=== PATIENT | male | born 1955 | race Caucasian/White ===

== ENCOUNTER 2022-02-11 14:07 | Outpatient (REF) | payer OTHER, SELFPAY ==
[2022-02-11 16:11] LABS: Hematocrit 43.5 % (42.0-52.0); Hemoglobin 14.9 g/dl (14.0-18.0); Mean Corpuscular HGB Conc 34.3 g/dl (31.0-36.0); Mean Corpuscular Hemoglobin 31.2 pg (27.0-33.0); Mean Platelet Volume 9.6 fL (9.4-12.4); Platelet Count 234 X10*3/uL (160-400); Red Blood Count 4.78 X10*6/uL (4.60-5.80); Red Cell Distribution Width 12.5 % (11.0-16.0); White Blood Count 12.6 X10*3/uL (4.8-10.8)
[2022-02-11 16:36] LABS: Anion Gap 13 (12-20); Blood Urea Nitrogen 15 mg/dL (9-16); Calcium 9.8 mg/dL (8.4-10.2); Carbon Dioxide 26 mmol/L (22-29); Chloride 103 mmol/L (96-108); Estimated Glomerular Filt Rate > 60; Glucose Random 104 mg/dL (60-115); Potassium 4.4 mmol/L (3.3-5.1); Sodium 138 mmol/L (135-145)
== END 2022-02-11 14:08 | disposition home or self-care (01) ==
LOC: HO.LAB 14:07
PROVIDERS: PCP Internal Medicine; Referring Provider Internal Medicine; Visit Provider Internal Medicine
DX: I25.118 Atherosclerotic heart disease of native coronary artery with other forms of angina pectoris (principal); I10 Essential (primary) hypertension; E78.5 Hyperlipidemia, unspecified; Z79.899 Other long term (current) drug therapy
CPT/HCPCS: 36415; 80048; 85027; 85610; 93005; 99202

== ENCOUNTER → 2022-02-19 13:57 | Outpatient (REF) | payer OTHER, SELFPAY ==
--- NOTE | 2022-02-19 14:02 | CA_ITS ---
Transthoracic Echocardiogram Patient (Last, First, Middle): Van Horan, Gender: Male Date of : 1955 Age: 66 Procedure Date: 02/19/2022 Procedure Type: Transthoracic Echocardiogram Location: OP Height: 170.18 cm Weight: 72.58 kg BSA: 1.84 m2 Heart Rate: bpm BP: 125 / 70 mmHg Amalgamator: TO Referring MD: Chung Butt MD Symptoms: I25.10 - Atherosclerotic heart disease of [place] coronary artery without... Study Quality: Fair Conclusions: - Normal left ventricular size and systolic function. The visually estimated ejection fraction is between 60-65%. - Normal right ventricular cavity size and systolic function. Findings Left Ventricle Normal left ventricular size and systolic function. The visually estimated ejection fraction is between 60-65%. There is no evidence of regional wall motion abnormalities. Diastolic function is normal for age. There is mild septal asymmetric hypertrophy. GLS normal at -18%. Right Ventricle Normal right ventricular cavity size and systolic function. Atria Both atria are normal in size. Aortic Valve Normal aortic valve structure and function. There is no aortic valve stenosis. There is no aortic valve regurgitation. Mitral Valve The mitral valve appears normal. There is no mitral valve regurgitation. There is no mitral valve stenosis. Pulmonic Valve The pulmonic valve is likely normal. Tricuspid Valve Normal tricuspid valve structure. There is trace tricuspid valve regurgitation. Normal right atrial pressure. There is no evidence of pulmonary hypertension. Great Vessels All visible segments of the aorta are normal in size. Venous The inferior vena cava is normal in size and collapses greater than 50% with inspiration. Pericardium/Pleural There is no evidence of pericardial effusion. Prior Study Comparison No prior study available for comparison. Measurements 2D Linear Measurements IVSd: 1.17 0.6-0.9/0.6-1.0 cm LVIDd: 4.44 3.9-5.3/4.2-5.9 cm LVIDd Index: 2.41 2.4-3.2/2.2-3.1 cm/m2 LVIDs: 2.48 2.0-3.6 cm LVPWd: 0.84 0.7-1.1 cm LA Diam: 3.40 2.7-3.8/3.0-4.0 cm LAIDs Index: 1.85 1.5-2.3 cm/m2 LV Mass: 188.04 67-162/88-224 g LV Mass Index: 102.20 43-95/49-115 g/m2 LVOT Diam: 2.00 3.0+(-)1.3 cm 2D Systolic Function EF 4C: 64.70 >55% EF 2C: 68.00 >55% EF BiP: 66.70 >55% Mitral Valve MV Pk E: 0.69 MV PK A: 0.72 MV Decel Time: 276.00 E/A: 1.00 E'Lateral: 11.10 E'Medial: 7.07 E/E' Med: 9.80 E/E' Lat: 6.20 PHT: 81.00 MVA PHT: 2.72 Decel [place]: 2.50 Aortic Valve AoV Pk Clark: 1.75 AoV Mn Clark: 1.13 AoV VTI: 0.35 AoV Pk Grad: 12.00 Aov Mn Grad: 6.00 DARRYL Cont.VTI: 2.76 LVOT LVOT Pk Clark: 1.46 LVOT Mn Clark: 0.89 LVOT VTI: 0.31 LVOT Pk Grad: 9.00 LVOT Mn Grad: 4.00 LVOT Diam: 2.00 LVOT Area: 3.14 Diastolic Function MV Pk E: 0.69 MV Pk A: 0.72 E/A: 1.00 E'Medial: 7.07 E/E' Med: 9.80 E' Laterial: 11.10 E/E' Lat: 6.20 Right Ventricle TAPSE (mm): 21.90 TVS' Clark: 13.30 Tricuspid Valve TR Pk Clark: 2.42 TR Pk Grad: 23.00 RA Press: 3.00 RVSP: 26.00 Great Vessels Aorta Sinus of Valsalva: 3.68 2.0-3.5 cm Ao Asc: 2.90 2.1-3.4 cm Updated in Other Vendor System with Status of Final Av Hassan MD electronically signed on 02/22/2022 11:43:35 AM with status of Final
== END ==
LOC: HO.CARD 13:57
PROVIDERS: PCP Internal Medicine; Visit Provider Internal Medicine
DX: I25.119 Atherosclerotic heart disease of native coronary artery with unspecified angina pectoris (principal)
CPT/HCPCS: 93306; 93356

== ENCOUNTER → 2022-02-23 13:31 | Outpatient (BNVA) | payer OTHER, SELFPAY | PROVIDERS: PCP Internal Medicine; Visit Provider Internal Medicine | DX: I25.118 Atherosclerotic heart disease of native coronary artery with other forms of angina pectoris (principal); I10 Essential (primary) hypertension; E78.5 Hyperlipidemia, unspecified; Z79.899 Other long term (current) drug therapy; Z95.5 Presence of coronary angioplasty implant and graft | CPT/HCPCS: 99212 ==

== ENCOUNTER → 2022-05-31 08:59 | Outpatient (BNVA) | payer OTHER, SELFPAY | PROVIDERS: PCP Internal Medicine; Referring Provider Internal Medicine; Visit Provider Internal Medicine | DX: I25.118 Atherosclerotic heart disease of native coronary artery with other forms of angina pectoris (principal); I10 Essential (primary) hypertension; E78.5 Hyperlipidemia, unspecified; M79.631 Pain in right forearm | CPT/HCPCS: 99212 ==

== ENCOUNTER 2023-02-03 12:50 | Outpatient (AMB) | payer OTHER, SELFPAY ==
[2022-09-24 14:17] VITALS: BP 116/52; BP 80/40; BMI 24.6
--- NOTE | 2023-02-03 13:28 | MHC.OFFVIS ---
Intake Intake Visit Reasons: Rising PSA Intake Note: New Patient presents for initial visit for Urology Medications: Blood Thinner: Medical Reviewer Required: No Accompanied by: Self / Same As Patient Allergies No Known Allergies Allergy (Verified 02/03/23 20:10) Medication List - Last Reconciled 02/03/23 by JERRY Wagner aspirin (Adult Low Dose Aspirin) 81 mg PO DAILY budesonide ER 3 mg PO DAILY losartan 50 mg PO DAILY metoprolol succinate ER 50 mg PO DAILY rosuvastatin 40 mg PO DAILY ticagrelor (Brilinta) 90 mg PO BID trazodone 50 mg PO BEDTIME HPI HPI Comments History of Present Illness Details Van is a very pleasant 67-year-old male patient of Dr. Joe. He has a past medical history of atherosclerotic cardiovascular disease, hyperlipidemia, and hypertension. He presents to the office today as a new patient for an elevated PSA. In discussion with the patient today reports to be doing and feeling well. He reports having had annual blood work with PCP at which time PSA was noted to be elevated. Discussed at length potential causes of elevated PSA. Patient otherwise denies any bothersome urinary issues or concerns. He denies urinary urgency, urinary frequency, incontinence, nocturia, hematuria, dysuria, foul smelling urine, changes to urinary stream, flank pain, fever, and or chills. He is happy with his current voiding parameters. He denies any known family history of prostate cancer. In office urinalysis results reviewed with the patient today. LUCINA offered however deferred. Discussed obtaining redraw of PSA with no sex the night before, no caffeine morning of, and no heavy lifting 1-2 days prior to lab draw. Discussed obtaining retroperitoneal ultrasound for further assessment evaluation. He otherwise offers no issues or concerns at this time. PSA 12/20--5.9 PFSH Medical History Atherosclerotic cardiovascular disease Other and unspecified hyperlipidemia Essential hypertension Surgical History History of cardiac cath Family History Other Adopted Social History Alcohol intake: former Year quit: 1989 Patient Tobacco Use Status: Former Tobacco user Quit Date: 1989 Tobacco use type: Cigarette Cigarette Packs Per Day: 1 Years Smoked: 10+ Review of Systems Const Reports no additional complaints Eyes Reports no additional complaints ENT Reports no additional complaints Card Reports as per HPI Resp Reports no additional complaints GI Reports no additional complaints Reports as per HPI Musc Reports no additional complaints Neuro Reports no additional complaints Psych Reports no additional complaints Endo Reports no additional complaints Jaron/Lymph Reports no additional complaints Aller/Immun Reports no additional complaints Physical Exam Const General: cooperative, healthy appearing, comfortable, no acute distress, well developed, alert and awake Orientation/consciousness: patient oriented x3 Limitations: no limitations HEENT Head: Yes normal to inspection, Yes normocephalic and Yes atraumatic Ears: hearing grossly normal bilaterally Eyes General: appearance normal, both eyes and all related structures Neck Neck: Yes normal visual inspection and Yes trachea midline Chest Chest palpation & inspection: normal inspection of the chest Resp Effort & Inspection: normal respiratory effort and able to speak in complete sentences Cardio Rate: regular rate GI Inspection: Yes normal to inspection General: Yes no CVA tenderness Back/Spine/Pelvis Back: no CVA tenderness Skin General skin exam: no rashes or lesions noted Neuro General: patient oriented x3 Extrem General: Yes normal to inspection Psych Appearance: grossly normal and well kempt Mental Status: mental status grossly normal Speech and movement: Clear speech present and Pressured speech present Affect: normal affect Attitude: cooperative Thought content: Normal thought content present Insight: Fair insight present (Psych) Judgement: Fair judgement present (Psych) Results AMB Urinalysis, Automated UA Leukoctes 0 Aleida/uL Last Edit by Predikt on 02/03/23 13:54 UA Nitrite Negative Last Edit by Predikt on 02/03/23 13:54 UA Urobilinogen 0.2 mg/dL Last Edit by Predikt on 02/03/23 13:54 UA Protein 15 mg/dL Last Edit by Predikt on 02/03/23 13:54 UA pH 6.0 Last Edit by Predikt on 02/03/23 13:54 UA Blood 0 Natanael/uL Last Edit by Predikt on 02/03/23 13:54 UA Specific [place] 1.105 Last Edit by Predikt on 02/03/23 13:54 UA Ketone Negative Last Edit by Ericka Kidd on 02/03/23 13:54 UA Bilirubin 0 mg/dL Last Edit by Ericka Kidd on 02/03/23 13:54 UA Glucose 0 mg/dL Last Edit by Ericka Kidd on 02/03/23 13:54 Results Reviewed Results Reviewed: Laboratory Last Values Urine pH (Auto) 6.0 02/03/23 13:33 Specific [place] (Auto) 1.105 02/03/23 13:33 Urine Protein (Auto) 15 mg/dL 02/03/23 13:33 Glucose (UA)(Auto) 0 mg/dL 02/03/23 13:33 Urine Ketones (Auto) Negative 02/03/23 13:33 Urine Blood (Auto) 0 Natanael/uL 02/03/23 13:33 Urine Nitrite (Auto) Negative 02/03/23 13:33 Urine Bilirubin (Auto) 0 mg/dL 02/03/23 13:33 Urine Urobilinogen (Auto) 0.2 mg/dL 02/03/23 13:33 Leukocyte Esterase (Auto) 0 Aleida/uL 02/03/23 13:33 Assessment & Plan Assessment & Plan (1) Elevated PSA: Code(s): R97.20 - Elevated prostate specific antigen [PSA] Plan In office urinalysis results reviewed with the patient today. Discussed at length potential causes of elevated PSA. LUCINA offered however deferred Patient denies any bothersome urinary issues at this time. He reports be happy with current voiding parameters. Discussed PSA results. Will redraw PSA; with no sex night before, no caffeine morning of, and no heavy lifting 1-2 days prior to lab draw. Will obtain retroperitoneal ultrasound for further assessment evaluation. Follow-up in 4-6 weeks with imaging and lab to be completed prior; or sooner with any issues, concerns, and or questions. Orders: Orders PSA,Total (Free>4and<10) Today R97.20 - Elevated prostate specific antigen [PSA] US retroperitoneal comp Today R39.9 - Unspecified symptoms and signs involving the genitourinary system AMB Urinalysis Automated Today Z13.9 - Encounter for screening, unspecified Patient Instructions: The patient had an opportunity to ask questions regarding the treatment plan. All questions were answered. Physical exam, labs, and imaging were discussed and reviewed in detail. As well as risks, benefits, and discussion of treatment choices. No major barriers to understanding were identified. The patient expressed understanding and agreement with the above treatment plan. The patient was made aware they should contact our office by phone for worsening of their current condition, the appearance of new symptoms, or with any questions or concerns. Compliance is encouraged with any medications and follow up testing that is ordered. It is a privilege to be allowed the opportunity to participate in? your urological care.? Again, if you have any questions or concerns If you have any questions or concerns please do not hesitate to contact me. The office is [phone]. This note is constructed using voice recognition software. While every effort has been made to ensure accuracy operator weapon locating radar errors may have been included. Yours sincerely, JERRY Wagner Coding Level of Care Code New Pt Level 3 (79059) Diagnoses Elevated PSA R97.20
== END 2023-02-03 14:16 | disposition home or self-care (01) ==
PROVIDERS: PCP Internal Medicine; Visit Provider Nurse Practitioner Family
DX: R97.20 Elevated prostate specific antigen [PSA] (principal); Z13.9 Encounter for screening, unspecified
CPT/HCPCS: 99203; 99213

== ENCOUNTER → 2023-02-03 12:50 | Outpatient (BNVA) | payer OTHER, SELFPAY ==
[2022-09-24 14:17] VITALS: BP 116/52; BP 80/40; BMI 24.6
== END ==
PROVIDERS: PCP Internal Medicine; Visit Provider Nurse Practitioner Family
DX: R97.20 Elevated prostate specific antigen [PSA] (principal)
CPT/HCPCS: 81003; 99202

== ENCOUNTER 2023-03-10 08:46 | Outpatient (AMB) | payer MEDICARE, SELFPAY ==
[2022-09-24 14:17] VITALS: BP 116/52; BP 80/40; BMI 24.6
--- NOTE | 2023-03-10 08:50 | A.OFFVIS_ITS ---
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 In 01/2022, he was seen regarding chest pain. Exertional symptoms for about 3-4 months. Also had an abnormal EKG with anterior T inversions. Subsequently, underwent urgent cardiac catheterization and LAD stenting. He is overall doing very well. No angina or in fact any cardiac symptoms at all. He states he has no issues whatsoever. [facility] Medical History Atherosclerotic cardiovascular disease Other and unspecified hyperlipidemia Essential hypertension Surgical History History of cardiac cath Family History Other Adopted Social History Alcohol intake: former Year quit: 1989 Patient Tobacco Use Status: Former Tobacco user Quit Date: 1989 Tobacco use type: Cigarette Cigarette Packs Per Day: 1 Years Smoked: 10+ Review of Systems Const Denies weakness ENT Denies dizziness Card Denies chest pain, Denies chest pain with activity, Denies syncope, Denies rapid heart rate, Denies pedal edema, Denies edema, Denies leg edema, Denies lightheadedness, Denies palpitations, Denies dyspnea, Denies dyspnea on exertion and Denies orthopnea Resp Denies cough, Denies dyspnea and Denies dyspnea on exertion GI Denies hematochezia and Denies change in stool character Musc Denies abnormal gait, Denies muscle cramps, Denies muscle weakness, Denies numbness, Denies radiating pain into limb and Denies tingling Neuro Denies abnormal gait, Denies dizziness, Denies syncope, Denies numbness, Denies tingling and Denies weakness Endo Denies palpitations Physical Exam Vital Signs: Last Vital Signs Pulse 54 03/10/23 08:51 BP 118/58 L 03/10/23 08:51 BMI result Body Mass Index 24.4 Const General: comfortable and no acute distress Orientation/consciousness: patient oriented x3 HEENT Other: Unremarkable Head: Yes normal to inspection Neck Neck: Yes normal visual inspection Chest Chest palpation & inspection: normal inspection of the chest Resp Auscultation: clear to auscultation bilaterally Cardio Palpation: normal PMI Heart sounds: S1 normal heart sound present, S2 normal heart sound present, no gallops, Murmur heart sound present systolic I/ and no rubs GI Palpation (GI): Soft to palpation Back/Spine/Pelvis Other: unremarkable Skin General skin exam: no rashes or lesions noted Neuro General: patient oriented x3 Extrem General: Yes normal to inspection Psych Mental Status: mental status grossly normal Office Procedures EKG Details: EKG with sinus bradycardia 54/Min; no significant ST-T changes and otherwise unremarkable. [place] [id number], Complete Assessment & Plan Assessment & Plan (1) Atherosclerotic cardiovascular disease: Code(s): I25.10 - Atherosclerotic heart disease of [place] coronary artery without angina pectoris (2) Stable angina: Code(s): I20.8 - Other forms of angina pectoris (3) Essential hypertension: Code(s): I10 - Essential (primary) hypertension (4) Other and unspecified hyperlipidemia: Code(s): E78.5 - Hyperlipidemia, unspecified Plan Cardiac catheterization data reviewed. Mid LAD had 95% stenosis. Status post drug-eluting stenting. Mid circumflex and RCA had 50% stenosis, for medical management. Echocardiogram with LVEF of 60-60%. No wall motion abnormalities and otherwise unremarkable. With regard to medications, aspirin indefinitely. Off Brilinta. Continue beta- blockers and statins. It seems that he has been on simvastatin in the past but then on atorvastatin but current list reflects rosuvastatin. Check lipids and LFTs. Otherwise stable. Follow-up in 1 year. He will call us with concerns. Total time spent including review of data, counseling, documentation, coordination of care-32 minutes. Coding Level of Care Code Est Pt Level 4 (34831) Diagnoses Atherosclerotic cardiovascular disease I25.10 Stable angina I20.8 Essential hypertension I10 Other and unspecified hyperlipidemia E78.5 CPT Codes EKG - CPT: 43602-[id number], Complete ([id number])
[2023-03-10 08:51] VITALS: BP 118/58; PULSE 54; BMI 24.4
== END 2023-03-10 09:06 | disposition home or self-care (01) ==
PROVIDERS: PCP Internal Medicine; Visit Provider Internal Medicine
DX: I25.10 Atherosclerotic heart disease of native coronary artery without angina pectoris (principal); I10 Essential (primary) hypertension; E78.5 Hyperlipidemia, unspecified
CPT/HCPCS: 93010; 99214

== ENCOUNTER → 2023-03-10 08:46 | Outpatient (BNVA) | payer SELFPAY ==
[2022-09-24 14:17] VITALS: BP 116/52; BP 80/40; BMI 24.6
== END ==
PROVIDERS: Visit Provider Internal Medicine
DX: I25.118 Atherosclerotic heart disease of native coronary artery with other forms of angina pectoris (principal); I10 Essential (primary) hypertension; E78.5 Hyperlipidemia, unspecified; Z79.82 Long term (current) use of aspirin; Z79.899 Other long term (current) drug therapy
CPT/HCPCS: 93005; 99212

== ENCOUNTER 2024-03-12 14:01 | Outpatient (REF) | payer MEDICARE, SELFPAY ==
[2022-09-24 14:17] VITALS: BP 116/52; BP 80/40; BMI 24.6
[2024-03-12 18:53] LABS: Alanine Aminotransferase 22 U/L (0-40); Albumin Level 4.6 g/dL (3.5-5.0); Alkaline Phosphatase 54 U/L (39-117); Aspartate Amino Transferase 27 U/L (5-37); Bilirubin Direct 0.3 mg/dL (0.0-0.5); Bilirubin Total 0.9 mg/dL (0.0-1.0); Cholesterol 113 mg/dL (<200); HDL Cholesterol 47 mg/dL (>40); LDL Cholesterol Calculated 51 mg/dL (<100); Total Protein 7.4 g/dL (6.5-8.0); Triglycerides 75 mg/dL (<150)
== END 2024-03-12 14:02 | disposition home or self-care (01) ==
LOC: HO.LAB 14:01
PROVIDERS: PCP Internal Medicine; Visit Provider Internal Medicine
DX: I25.10 Atherosclerotic heart disease of native coronary artery without angina pectoris (principal); E78.5 Hyperlipidemia, unspecified; I10 Essential (primary) hypertension
CPT/HCPCS: 36415; 80061; 80076; 93005; 99212

== ENCOUNTER 2024-03-12 14:01 | Outpatient (AMB) | payer MEDICARE, SELFPAY ==
[2022-09-24 14:17] VITALS: BP 116/52; BP 80/40; BMI 24.6
[2024-03-12 14:18] VITALS: BP 124/68; PULSE 61; BMI 23.5
--- NOTE | 2024-03-12 14:18 | MHC.OFFVIS ---
Vital Signs 03/12/24 14:18 Height 5 ft 7 in Weight 149 lb 14.629 oz BMI 23.5 BP 124/68 Blood Pressure Location Lt brachial Position Sitting Pulse 61 Pulse Source Monitor Intake Visit Reasons: 1 year follow-up Allergies No Known Allergies Allergy (Verified 03/10/23 08:53) Medication List - Last Reconciled 03/12/24 by Chung Butt MD aspirin (Adult Low Dose Aspirin) 81 mg PO DAILY losartan 50 mg PO DAILY metoprolol succinate ER 50 mg PO DAILY rosuvastatin 40 mg PO DAILY trazodone 50 mg PO BEDTIME HPI Comments Details: Van returns for follow-up. In 01/2022, he was seen regarding chest pain. Exertional symptoms for about 3-4 months. Also had an abnormal EKG with anterior T inversions. Subsequently, underwent urgent cardiac catheterization and LAD stenting. No cardiac symptoms and he is doing good from that end. No angina or in fact any concerns from cardiac. [facility] Medical History Atherosclerotic cardiovascular disease Other and unspecified hyperlipidemia Essential hypertension Surgical History History of cardiac cath Family History Other Adopted Social History Alcohol intake: former Year quit: 1989 Patient Tobacco Use Status: Former Tobacco user Tobacco use type: Cigarette Cigarette Packs Per Day: 1 Years Smoked: 10+ Review of Systems Const Denies weakness ENT Denies dizziness Card Denies chest pain, Denies chest pain with activity, Denies syncope, Denies rapid heart rate, Denies pedal edema, Denies edema, Denies leg edema, Denies lightheadedness, Denies palpitations, Denies dyspnea, Denies dyspnea on exertion and Denies orthopnea Resp Denies cough, Denies dyspnea and Denies dyspnea on exertion GI Denies hematochezia and Denies change in stool character Musc Denies abnormal gait, Denies muscle cramps, Denies muscle weakness, Denies numbness, Denies radiating pain into limb and Denies tingling Neuro Denies abnormal gait, Denies dizziness, Denies syncope, Denies numbness, Denies tingling and Denies weakness Endo Denies palpitations Physical Exam Vital Signs: Last Vital Signs Pulse 61 03/12/24 14:18 BP 124/68 03/12/24 14:18 BMI result Body Mass Index 23.5 Const General: comfortable and no acute distress Orientation/consciousness: patient oriented x3 HEENT Other: Unremarkable Head: Yes normal to inspection Neck Neck: Yes normal visual inspection Chest Chest palpation & inspection: normal inspection of the chest Resp Auscultation: clear to auscultation bilaterally Cardio Palpation: normal PMI Heart sounds: S1 normal heart sound present, S2 normal heart sound present, no gallops, Murmur heart sound present systolic II/ and at the apex and no rubs GI Palpation (GI): Soft to palpation Back/Spine/Pelvis Other: unremarkable Skin General skin exam: no rashes or lesions noted Neuro General: patient oriented x3 Extrem General: Yes normal to inspection Psych Mental Status: mental status grossly normal Office Procedures EKG Details: EKG with underlying sinus rhythm at 61/Min; no significant ST-T changes and otherwise unremarkable. [place]. [id number], Complete Assessment & Plan Assessment & Plan (1) Atherosclerotic cardiovascular disease: Code(s): I25.10 - Atherosclerotic heart disease of [place] coronary artery without angina pectoris Category: Medical (2) Essential hypertension: Code(s): I10 - Essential (primary) hypertension Category: Medical (3) Other and unspecified hyperlipidemia: Code(s): E78.5 - Hyperlipidemia, unspecified Category: Medical Plan Cardiac catheterization data reviewed. Mid LAD had 95% stenosis. Status post drug-eluting stenting. Mid circumflex and RCA had 50% stenosis, for medical management. Echocardiogram with LVEF of 60-65%. No wall motion abnormalities and otherwise unremarkable. With regard to medications, aspirin indefinitely. Off Brilinta. Continue beta-blockers and statins. It seems that he has been on simvastatin in the past but then on atorvastatin but current list reflects rosuvastatin. Obtain lipids/LFTs. Do not see any recent lipids in the [facility] system either. Otherwise stable cardiac status. Follow-up in 1 year. He will call us with concerns. Total time spent including review of data, counseling, documentation, coordination of care-31 minutes. Orders: Orders Lipid Panel Today E78.5 - Hyperlipidemia, unspecified, I25.10 - Atherosclerotic heart disease of [place] coronary artery without angina pectoris Liver Panel Today I25.10 - Atherosclerotic heart disease of [place] coronary artery without angina pectoris Coding Level of Care Code Est Pt Level 4 (13202) Diagnoses Atherosclerotic cardiovascular disease I25.10 Essential hypertension I10 Other and unspecified hyperlipidemia E78.5 CPT Codes EKG - CPT: 81337-[id number], Complete ([id number])
== END 2024-03-12 14:39 | disposition home or self-care (01) ==
PROVIDERS: PCP Internal Medicine; Visit Provider Internal Medicine
DX: I25.10 Atherosclerotic heart disease of native coronary artery without angina pectoris (principal); I10 Essential (primary) hypertension; E78.5 Hyperlipidemia, unspecified
CPT/HCPCS: 93010; 99214